=== PATIENT | female | born 1985 | race Caucasian/White ===

== ENCOUNTER 2017-11-25 09:14 | Emergency (ER) | payer OTHER ==
[~2017-11-25] VITALS: Ht 157.5 cm; Wt 73.5 kg
[~2017-11-25 09:14] MED LIST: AMOXICILLIN 50500 MG PO; ANACIN PO; EXCEDRIN CAPLE1 EACH PO; HYDROCODONE-AP1 EAC6 PO; IBUPROFEN 800800 M1 PO; NORCO 5-325 TA1 EAC1 PO; NORCO 5-325 TA1 EACH PO; NYSTATIN 1100000 U/M BUCCAL; PERCOCET 5-3251 EACH PO; ROBAXIN 750 MG750 M1 PO; XANAX 1 MG TABLE1 MG PO; ZOFRAN ODT4 MG PO
[2017-11-25 09:43] VITALS: BP 130/86
== END 2017-11-25 09:45 | disposition home or self-care (01) ==
LOC: M.ERS 09:14
DX: F41.9 Anxiety disorder, unspecified (principal); F17.210 Nicotine dependence, cigarettes, uncomplicated